=== PATIENT | female | born 1980 | race Caucasian/White ===

== ENCOUNTER → 2020-07-30 13:00 | Outpatient (BNVA) | payer MEDICAID, SELFPAY | PROVIDERS: Family Provider Family Medicine; Visit Provider Counselor Mental Health | DX: F43.12 Post-traumatic stress disorder, chronic (principal); F33.1 Major depressive disorder, recurrent, moderate | CPT/HCPCS: 90832 ==

== ENCOUNTER → 2020-08-06 08:00 | Outpatient (BNVA) | payer MEDICAID, SELFPAY | PROVIDERS: Family Provider Family Medicine; PCP Family Medicine; Visit Provider Nurse Practitioner Psychiatric/Mental Health | DX: F43.12 Post-traumatic stress disorder, chronic (principal); F33.1 Major depressive disorder, recurrent, moderate | CPT/HCPCS: 99212 ==

== ENCOUNTER → 2020-08-13 09:03 | Outpatient (BNVA) | payer MEDICAID, SELFPAY | PROVIDERS: Family Provider Family Medicine; PCP Family Medicine; Visit Provider Counselor Mental Health | DX: F33.1 Major depressive disorder, recurrent, moderate (principal); F43.12 Post-traumatic stress disorder, chronic | CPT/HCPCS: 90834 ==

== ENCOUNTER → 2020-08-27 13:00 | Outpatient (BNVA) | payer MEDICAID, SELFPAY | PROVIDERS: Family Provider Family Medicine; Visit Provider Counselor Mental Health | DX: F33.1 Major depressive disorder, recurrent, moderate (principal); F43.12 Post-traumatic stress disorder, chronic | CPT/HCPCS: 90834 ==

== ENCOUNTER → 2020-09-10 08:42 | Outpatient (BNVA) | payer MEDICAID, SELFPAY | PROVIDERS: Family Provider Family Medicine; Visit Provider Counselor Mental Health | DX: F43.12 Post-traumatic stress disorder, chronic (principal); F33.1 Major depressive disorder, recurrent, moderate | CPT/HCPCS: 90832 ==

== ENCOUNTER → 2020-09-24 08:58 | Outpatient (BNVA) | payer MEDICAID, SELFPAY | PROVIDERS: Family Provider Family Medicine; Visit Provider Counselor Mental Health | DX: F33.1 Major depressive disorder, recurrent, moderate (principal); F43.12 Post-traumatic stress disorder, chronic | CPT/HCPCS: 90832 ==

== ENCOUNTER → 2020-10-02 07:50 | Outpatient (BNVA) | payer MEDICAID, SELFPAY | PROVIDERS: Family Provider Family Medicine; Visit Provider Nurse Practitioner Psychiatric/Mental Health | DX: F43.12 Post-traumatic stress disorder, chronic (principal); F33.1 Major depressive disorder, recurrent, moderate; Z79.899 Other long term (current) drug therapy | CPT/HCPCS: G0463 ==

== ENCOUNTER → 2020-10-08 08:17 | Outpatient (BNVA) | payer MEDICAID, SELFPAY | PROVIDERS: Family Provider Family Medicine; Visit Provider Counselor Mental Health | DX: F33.1 Major depressive disorder, recurrent, moderate (principal); F43.12 Post-traumatic stress disorder, chronic | CPT/HCPCS: 90832 ==

== ENCOUNTER → 2020-12-27 08:15 | Outpatient (BNVA) | payer MEDICAID, SELFPAY | PROVIDERS: Family Provider Family Medicine; Visit Provider Nurse Practitioner Psychiatric/Mental Health | DX: F33.1 Major depressive disorder, recurrent, moderate (principal); F43.12 Post-traumatic stress disorder, chronic | CPT/HCPCS: 99214 ==

== ENCOUNTER → 2021-02-21 08:08 | Outpatient (BNVA) | payer MEDICAID, SELFPAY | PROVIDERS: Family Provider Family Medicine; Visit Provider Nurse Practitioner Psychiatric/Mental Health | DX: F33.1 Major depressive disorder, recurrent, moderate (principal); F43.12 Post-traumatic stress disorder, chronic | CPT/HCPCS: 99213 ==

== ENCOUNTER → 2021-06-25 07:51 | Outpatient (BNVA) | payer MEDICAID, SELFPAY | PROVIDERS: Family Provider Family Medicine; Visit Provider Nurse Practitioner Psychiatric/Mental Health | DX: F33.1 Major depressive disorder, recurrent, moderate (principal); F43.12 Post-traumatic stress disorder, chronic; Z03.89 Encounter for observation for other suspected diseases and conditions ruled out | CPT/HCPCS: 99213 ==

== ENCOUNTER → 2021-06-28 08:32 | Outpatient (BNVA) | payer MEDICAID, SELFPAY | PROVIDERS: Family Provider Family Medicine; Visit Provider Nurse Practitioner Psychiatric/Mental Health | DX: Z03.89 Encounter for observation for other suspected diseases and conditions ruled out (principal); E61.9 Deficiency of nutrient element, unspecified | CPT/HCPCS: 84630 ==

== ENCOUNTER → 2021-09-17 07:57 | Outpatient (BNVA) | payer MEDICAID, SELFPAY | PROVIDERS: Family Provider Family Medicine; Visit Provider Nurse Practitioner Psychiatric/Mental Health | DX: F33.1 Major depressive disorder, recurrent, moderate (principal); F43.12 Post-traumatic stress disorder, chronic; Z03.89 Encounter for observation for other suspected diseases and conditions ruled out | CPT/HCPCS: 99214 ==

== ENCOUNTER → 2021-11-04 08:40 | Outpatient (BNVA) | payer MEDICAID, SELFPAY | PROVIDERS: Family Provider Family Medicine; Visit Provider Nurse Practitioner Psychiatric/Mental Health | DX: F33.1 Major depressive disorder, recurrent, moderate (principal); F43.12 Post-traumatic stress disorder, chronic | CPT/HCPCS: 99214 ==

== ENCOUNTER → 2021-11-08 09:13 | Outpatient (BNVA) | payer MEDICAID, SELFPAY | PROVIDERS: Family Provider Family Medicine; Referring Provider Family Medicine; Visit Provider Internal Medicine | DX: E11.29 Type 2 diabetes mellitus with other diabetic kidney complication (principal); E11.65 Type 2 diabetes mellitus with hyperglycemia; E78.5 Hyperlipidemia, unspecified; Z79.4 Long term (current) use of insulin; Z87.891 Personal history of nicotine dependence | CPT/HCPCS: 99204 ==

== ENCOUNTER 2021-11-11 13:45 | Outpatient (CLI) | payer MEDICAID, SELFPAY ==
[2021-11-11 14:46] LABS: Basophils % 0.4 %; Eosinophils # 0.1 10^3/uL (0.0-0.8); Eosinophils % 1.1 %; Hematocrit 39.2 % (37.0-47.0); Hemoglobin 12.2 g/dL (11.5-15.3); Lymphocytes # 0.8 10^3/uL (0.8-4.8); Lymphocytes % 16.9 %; Mean Corpuscular HGB Conc 31.1 g/dL (30.0-36.0); Mean Corpuscular Hemoglobin 28.2 pg (28.0-34.0); Mean Corpuscular Volume 90.7 fl (81-99); Mean Platelet Volume 10.4 fL (7.4-10.4); Monocytes # 0.4 10^3/uL (0.2-0.9); Monocytes % 7.8 %; Neutrophils # 3.48 10^3/uL (1.8-7.7); Neutrophils % 73.6 %; Nucleated Red Blood Cells % 0 %; Platelet Count 104 10^3/cmm (130-400); Red Blood Count 4.32 10^6/uL (4.1-5.3); Red Cell Distribution Width 14.9 % (12.1-15.1); White Blood Count 4.7 10^3/uL (4.0-10.0)
--- NOTE | 2021-11-11 15:50 | ONC CON_ITS ---
Dr. Barrientos New Patient Note Patient: Agata Shore Unit #: [id number]: 1980 Dicatated By: Gail Barrientos M.D.Date of Visit: Nov 11, 2021 Onc MED New Patient/Consult Referring Physician: Dr. Alin Suggs M.D. History of Present Illness: Agata Shore, is a 41-year-old female with history of uncontrolled diabetes mellitus and related neuropathy, was found to have mild isolated thrombocytopenia during her routine follow-up with PMD on 10/12/2021, at that time her CBC showed white blood count 4000 hemoglobin 10.6 hematocrit 33.1 and platelets 119,000 repeat CBC done on 09/19/2021 showed white blood count 4.2 hemoglobin 12 g, platelets 94,000 and CBC done on 10/09/2021 showed white blood count 4.4 hemoglobin 11.6 g hematocrit 36.4 platelets 89,000, Patient denies any history of gross bleeding, no melena or hematochezia no hemoptysis or hematemesis, no nosebleed or gum bleed, no dysuria or hematuria, no petechiae but bruising due to off and on skin infection. Denies any night sweats denies any weight loss denies any recurrent fever, denies any history of thrombocytopenia prior to August 2021. As per patient in summer 2020, when she went to [facility] in [place], [place], she had sonogram of abdomen or CT scan, she does not remember, at that time she was told about cirrhosis of the liver and also mentioned that her spleen is swollen. But has not seen fisher net. Denies any jaundice, denies any abdominal pain or fullness Denies smoking but she has history of alcohol use till about 10 years ago Past Medical History: Ms. Sarmiento medical history consists of anemia, bipolar depression, chronic low back pain, closed burst fracture of lumbar vertebra, congestive heart failure, coronary artery disease, diabetic gastroparesis, gastroesophageal reflux disease, hepatic cirrhosis, history of MRSA, hyperlipidemia, hypertension, PAL, necrotizing soft tissue infection, peripheral neuropathy, peripheral vascular disease, spinal stenosis of lumbar re, thoracic aortic aneurysm, type II diabetes, and Vitamin D deficiency. Past Surgical History: Ms. Shore'rhiannon surgical/procedural history consists of Covid 19 Vaccine-Moderna in 2020. Medications: Acid Control Maximum Strength 1 Tablet (of 20 mg) Oral b.i.d., ALPRAZolam 1 Tablet (of 0.5 mg) Oral b.i.d. PRN, Aspirin 81 1 Tablet (of 81 mg) Tablet, enteric coated Oral daily, Atorvastatin Calcium 1 Tablet (of 20 mg) Oral at bedtime, Baclofen 1 Tablet (of 10 mg) Oral at bedtime PRN, Eewrndjyzj-KLMS-Pddmetgm 1 Tablet (of 50-325-40 mg) Capsule Oral q 6 hours PRN, Cetirizine HCl 1 Tablet (of 10 mg) Oral daily, Fluticasone Propionate 2 [place](s) (of 50 mcg/act) Suspension Nasal daily, Furosemide 1 Tablet (of 40 mg) Oral daily, Gabapentin 1 Tablet (of 800 mg) Oral t.i.d., HumuLIN R 120 Unit(s) (of 100 Units/mL) Injection t.i.d., hydrOXYzine HCl 1 Tablet (of 25 mg) Oral t.i.d. PRN, Meclizine HCl 1 Tablet (of 25 mg) Oral t.i.d. PRN, Metoclopramide HCl 1 Tablet (of 5 mg) Oral ac (tid), MiraLax 1 Packet (of 17 ) Powder Oral b.i.d., Montelukast Sodium 1 Tablet (of 10 mg) Oral at bedtime, Mupirocin Calcium (2 %) Cream Topical daily, Naloxone HCl Liquid Nasal PRN, Nitroglycerin Tablet, sublingual Sublingual PRN, Omeprazole 1 Capsule (of 40 mg) Capsule Delayed Release Oral daily, Ondansetron HCl 1 Tablet (of 4 mg) Oral q 8 hours PRN, Potassium Chloride ER 1 Tablet (of 20 meq) Tablet, controlled release Oral every am, Sennosides-Docusate Sodium 1 Capsule (of 8.6-50 mg) Oral b.i.d., Sertraline HCl 2 Tablet (of 100 mg) Oral daily, Victoza 0.6 mL (of 18 mg/3mL) Subcutaneous daily, Vitamin D (Ergocalciferol) 1 Capsule (of 1.25 mg ) Oral q 4 weeks, Zinc Capsule Oral Allergies: Peanut Oil and Penicillins. Social History: Ms. Shore is . Ms. Shore no longer smokes. She has no history of drinking. Family History: There is no documented family history. Review Of Symptoms: Review of Systems is not available for this patient. Vital Signs: Most recent vitals are not available for this patient. Performance Status: 0 - Fully active, able to carry on all predisease activities without restrictions. (ECOG) Physical Examination: ENMT - No mouth sores, no thrush, no jaundice, no cervical lymphadenopathy, Respiratory - Lungs are clear to auscultation, Cardiovascular - Regular rate and rhythm of heart, Abdomen - Soft, bowel sounds present, obesity, could not feel any organomegaly, Extremities - No visible edema but healing superficial multiple skin wounds especially involving upper forearms. Lab/Imaging: Most recent lab results are not available for this patient. Impression: Isolated, fluctuating, mild thrombocytopenia, etiology remained unclear could be due to medication, or underlying low-grade ITP or splenic sequestration or primary marrow disorder. History of anemia, now resolved Diabetes mellitus Off-and-on chronic skin infection Plan: Discussed with patient regarding her labs white blood count 4.7 hemoglobin 12.2 g hematocrit 39.2 platelets 104,000 with a normal differential Clinically, patient doing well with no new signs symptom suggestive of gross bleeding, her repeat CBC done today shows resolution of mild anemia and improvement in isolated mild thrombocytopenia. Etiology of fluctuating, mild isolated thrombocytopenia could be medication, could be low-grade ITP, as per patient in summer 2020, when she underwent abdominal scanning, she was told she has cirrhosis of the liver and also swollen spleen. So based on her history could be hepatic cirrhosis causing splenomegaly, and return causing fluctuating mild thrombocytopenia. At this point, will obtain abdominal sonogram or CT scan report from [facility] in [place] or from her PMDs office, if not done recently, may repeat abdominal sonogram with special attention to liver and spleen. In the meantime we will review her peripheral blood smear to rule out any platelet clumping or abnormal cytology. Patient will return to clinic in 1 month with CBC, by that time we will obtain her recently done abdominal scan reports. Patient was advised in case there is no evidence of gross bleeding, she need to call us or go to ER for evaluation. Signed By: Gail Barrientos M.D. <<Signature on File>>
[2021-11-11 19:30] LABS: LAB Peripheral Smear Sent for Review
== END 2021-11-11 13:46 | disposition home or self-care (01) ==
LOC: ONCMED 13:53
PROVIDERS: PCP Family Medicine; Visit Provider Internal Medicine Hematology & Oncology
DX: D69.6 Thrombocytopenia, unspecified (principal); E11.40 Type 2 diabetes mellitus with diabetic neuropathy, unspecified; I10 Essential (primary) hypertension; I73.9 Peripheral vascular disease, unspecified; E55.9 Vitamin D deficiency, unspecified; E78.5 Hyperlipidemia, unspecified; I50.9 Heart failure, unspecified; Z79.899 Other long term (current) drug therapy
CPT/HCPCS: 36415; 85025; 99204

== ENCOUNTER 2021-11-13 09:50 | Outpatient (CLI) | payer MEDICAID, SELFPAY ==
--- NOTE | 2021-11-13 09:59 | MM_ITS ---
WS: [id number] BILATERAL SCREENING DIGITAL MAMMOGRAM WITH CAD HISTORY: SCREENING COMPARISON: 01/29/2018 Bilateral CC and MLO views submitted. Computer aided detection analyzed. Breast composition: There are scattered areas of fibroglandular density. Quality of this examination is limited by motion artifact. There is an asymmetry in the lateral RIGHT breast which is stable. No new asymmetries or architectural distortion. Bilateral breast arterial calcifications. No suspicious masses, microcalcifications or architectural distortion. MM/[id number] IMPRESSION: BI-RADS: 2-Benign FOLLOW UP: 1 Year Follow-up
== END 2021-11-13 09:51 | disposition home or self-care (01) ==
PROVIDERS: PCP Family Medicine; Visit Provider Nurse Practitioner Family
DX: Z12.31 Encounter for screening mammogram for malignant neoplasm of breast (principal)
CPT/HCPCS: 77067

== ENCOUNTER 2021-12-17 13:43 | Outpatient (CLI) | payer MEDICAID, SELFPAY ==
[2021-12-17 14:12] LABS: Basophils % 0.6 %; Eosinophils # 0.1 10^3/uL (0.0-0.8); Eosinophils % 1.1 %; Hemoglobin 12.6 g/dL (11.5-15.3); Lymphocytes # 1.6 10^3/uL (0.8-4.8); Lymphocytes % 25.7 %; Mean Corpuscular HGB Conc 33.2 g/dL (30.0-36.0); Mean Corpuscular Hemoglobin 28.6 pg (28.0-34.0); Mean Corpuscular Volume 86.4 fl (81-99); Monocytes # 0.3 10^3/uL (0.2-0.9); Monocytes % 5.5 %; Neutrophils # 4.17 10^3/uL (1.8-7.7); Neutrophils % 66.9 %; Nucleated Red Blood Cells % 0 %; Platelet Count 126 10^3/cmm (130-400); Red Cell Distribution Width 13.9 % (12.1-15.1); White Blood Count 6.2 10^3/uL (4.0-10.0)
--- NOTE | 2021-12-17 15:45 | ONC FU_ITS ---
Dr. Barrientos follow up note Patient: Agata Shore Unit #: [id number]: 1980 Dicatated By: Gail Barrientos M.D.Date of Visit:Dec 17, 2021 Onc Med Follow-up/Prog Note History of Present Illness: Agata Shore, is a 41-year-old female with history of uncontrolled diabetes mellitus and related neuropathy, was found to have mild isolated thrombocytopenia during her routine follow-up with PMD on 10/12/2021, at that time her CBC showed white blood count 4000 hemoglobin 10.6 hematocrit 33.1 and platelets 119,000 repeat CBC done on 09/19/2021 showed white blood count 4.2 hemoglobin 12 g, platelets 94,000 and CBC done on 10/09/2021 showed white blood count 4.4 hemoglobin 11.6 g hematocrit 36.4 platelets 89,000, Patient denies any history of gross bleeding, no melena or hematochezia no hemoptysis or hematemesis, no nosebleed or gum bleed, no dysuria or hematuria, no petechiae but bruising due to off and on skin infection. Denies any night sweats denies any weight loss denies any recurrent fever, denies any history of thrombocytopenia prior to August 2021. CT scan of abdomen pelvis done on May 10, 2021 at [facility] in [place], [place] showed cirrhotic liver without concerning hepatic lesions and splenomegaly and persistent right lower lobe lung nodule which was present in 2018 too Denies any jaundice, denies any abdominal pain or fullness Denies smoking but she has history of alcohol use till about 10 years ago Came for follow-up, denies any specific complaints, no fever chills, no nausea or vomiting, no diarrhea constipation, no melena hematochezia, no hemoptysis hematemesis, no nosebleed or gum bleed, no hematuria or dysuria, no petechia or ecchymosis Medications: Acid Control Maximum Strength 1 Tablet (of 20 mg) Oral b.i.d., ALPRAZolam 1 Tablet (of 0.5 mg) Oral b.i.d. PRN, Aspirin 81 1 Tablet (of 81 mg) Tablet, enteric coated Oral daily, Atorvastatin Calcium 1 Tablet (of 20 mg) Oral at bedtime, Baclofen 1 Tablet (of 10 mg) Oral at bedtime PRN, Pkzdqgtlhc-GUQK-Rmyqubqb 1 Tablet (of 50-325-40 mg) Capsule Oral q 6 hours PRN, Cetirizine HCl 1 Tablet (of 10 mg) Oral daily, Fluticasone Propionate 2 [place](s) (of 50 mcg/act) Suspension Nasal daily, Furosemide 1 Tablet (of 40 mg) Oral daily, Gabapentin 1 Tablet (of 800 mg) Oral t.i.d., HumuLIN R 120 Unit(s) (of 100 Units/mL) Injection t.i.d., hydrOXYzine HCl 1 Tablet (of 25 mg) Oral t.i.d. PRN, Meclizine HCl 1 Tablet (of 25 mg) Oral t.i.d. PRN, Metoclopramide HCl 1 Tablet (of 5 mg) Oral ac (tid), MiraLax 1 Packet (of 17 ) Powder Oral b.i.d., Montelukast Sodium 1 Tablet (of 10 mg) Oral at bedtime, Mupirocin Calcium (2 %) Cream Topical daily, Naloxone HCl Liquid Nasal PRN, Nitroglycerin Tablet, sublingual Sublingual PRN, Omeprazole 1 Capsule (of 40 mg) Capsule Delayed Release Oral daily, Ondansetron HCl 1 Tablet (of 4 mg) Oral q 8 hours PRN, Potassium Chloride ER 1 Tablet (of 20 meq) Tablet, controlled release Oral every am, Sennosides-Docusate Sodium 1 Capsule (of 8.6-50 mg) Oral b.i.d., Sertraline HCl 2 Tablet (of 100 mg) Oral daily, Victoza 0.6 mL (of 18 mg/3mL) Subcutaneous daily, Vitamin D (Ergocalciferol) 1 Capsule (of 1.25 mg ) Oral q 4 weeks, Zinc Capsule Oral Allergies: Peanut Oil and Penicillins. Review of Systems: Review of Systems is not available for this patient. Vital Signs: Performed on Dec 17, 2021 15:21 Weight - 274.2 lbs (HIGH) BSA - 0.00 sq.m BMI - 0.00 Temperature - 97.2 F (LOW) Pulse - 84 /min Respiration - 18 /min BP - 111/74 mm(hg) O2 Sat - 95 % (LOW) Pain - 8 Fatigue - 10 Performance Status: 0 - Fully active, able to carry on all predisease activities without restrictions. (ECOG) Physical Examination: ENMT - No mouth sores, no thrush, no jaundice, poor oral hygiene, Respiratory - Lungs are clear to auscultation, Cardiovascular - Regular rate and rhythm of heart, Abdomen - Soft, bowel sounds present, obese, Extremities - No visible edema. Lab/Imaging: Most recent lab results are not available for this patient. Impression: Isolated, fluctuating, mild thrombocytopenia, etiology remained unclear But most likely due to splenic sequestration as CT scan of abdomen pelvis done on May 10, 2021 shows cirrhotic liver and splenomegaly History of anemia, now resolved Diabetes mellitus Off-and-on chronic skin infection Plan: .Discussed with patient regarding her labs white blood count 6.2 hemoglobin 12.6 hematocrit 38 platelets 126,000 compared to 104,000 previously Clinically, patient is doing well, with no signs symptoms suggestive of gross bleeding, follow-up CBC within normal range except mild thrombocytopenia, again with some improvement compared to previous CBC done on November 11, 2021. We will continue to monitor and her CT scan of abdomen pelvis done on May 10, 2021 confirmed cirrhotic liver and splenomegaly, which could be the cause of isolated mild thrombocytopenia, other possibility could be mild ITP, will continue to monitor and she will return to clinic in 3 months with CBC, Signed By: Gail Barrientos M.D. <<Signature on File>>
== END 2021-12-17 13:44 | disposition home or self-care (01) ==
LOC: ONCMED 13:45
PROVIDERS: PCP Family Medicine; Visit Provider Internal Medicine Hematology & Oncology
DX: D69.6 Thrombocytopenia, unspecified (principal); E11.9 Type 2 diabetes mellitus without complications; Z79.4 Long term (current) use of insulin; Z79.899 Other long term (current) drug therapy
CPT/HCPCS: 36415; 85025; 99214

== ENCOUNTER → 2021-12-31 08:24 | Outpatient (BNVA) | payer MEDICAID, SELFPAY | PROVIDERS: PCP Family Medicine; Visit Provider Nurse Practitioner Psychiatric/Mental Health | DX: F33.1 Major depressive disorder, recurrent, moderate (principal); F43.12 Post-traumatic stress disorder, chronic | CPT/HCPCS: 99214 ==

== ENCOUNTER → 2022-01-15 13:03 | Outpatient (BNVA) | payer MEDICAID, SELFPAY | PROVIDERS: PCP Family Medicine; Visit Provider Internal Medicine | DX: E11.29 Type 2 diabetes mellitus with other diabetic kidney complication (principal); E11.65 Type 2 diabetes mellitus with hyperglycemia; E78.5 Hyperlipidemia, unspecified; Z79.4 Long term (current) use of insulin; Z87.891 Personal history of nicotine dependence | CPT/HCPCS: 99214 ==

== ENCOUNTER → 2022-02-25 08:47 | Outpatient (BNVA) | payer MEDICAID, SELFPAY | PROVIDERS: PCP Family Medicine; Visit Provider Nurse Practitioner Psychiatric/Mental Health | DX: F33.1 Major depressive disorder, recurrent, moderate (principal) | CPT/HCPCS: 99213 ==

== ENCOUNTER → 2022-04-22 07:30 | Outpatient (BNVA) | payer MEDICAID, OTHER, SELFPAY | PROVIDERS: PCP Family Medicine; Visit Provider Nurse Practitioner Psychiatric/Mental Health | DX: F33.1 Major depressive disorder, recurrent, moderate (principal); F43.12 Post-traumatic stress disorder, chronic | CPT/HCPCS: 99214 ==

== ENCOUNTER → 2022-04-24 10:58 | Outpatient (BNVA) | payer MEDICAID, SELFPAY | PROVIDERS: PCP Family Medicine; Visit Provider Internal Medicine | DX: E78.5 Hyperlipidemia, unspecified (principal); E11.649 Type 2 diabetes mellitus with hypoglycemia without coma; E11.29 Type 2 diabetes mellitus with other diabetic kidney complication; E11.65 Type 2 diabetes mellitus with hyperglycemia; E11.43 Type 2 diabetes mellitus with diabetic autonomic (poly)neuropathy; K31.84 Gastroparesis; Z79.4 Long term (current) use of insulin | CPT/HCPCS: 99214 ==

== ENCOUNTER → 2022-07-31 09:24 | Outpatient (BNVA) | payer MEDICAID, SELFPAY | PROVIDERS: PCP Family Medicine; Visit Provider Nurse Practitioner Psychiatric/Mental Health | DX: F33.1 Major depressive disorder, recurrent, moderate (principal) | CPT/HCPCS: 80061; 83036 ==